=== PATIENT | male | born 1955 | race African-American/Black ===

== ENCOUNTER 2017-01-06 09:27 | Emergency (ER) | payer OTHER ==
[~2017-01-06 09:27] MED LIST: AVENZA; BACLOFEN20 M1 PO; CATAPRES0.1 MG PO; CLONIDINE PO; FLEXERIL PO; KEFLEX500 M1 PO; LODINE XL PO; LORTAB 7.5-3251 EACH PO; LORTAB 7.5-5001 TAB PO; NEURONTIN PO; PERCOCET 5-3251 TAB; PHENERGAN W/CO120 ML PO; PROMETHAZINE V118 M1 PO; ULTRAM PO; VOLTAREN50 MG PO
[2017-01-06] MEDS ORDERED: PERCOCET7.5 PO (09:37)
== END 2017-01-06 10:00 | disposition home or self-care (01) ==
LOC: SED 09:27
DX: R22.0 Localized swelling, mass and lump, head (principal); F17.200 Nicotine dependence, unspecified, uncomplicated; Z79.899 Other long term (current) drug therapy
CPT/HCPCS: 99283